=== PATIENT | female | born 1970 | race Caucasian/White ===

== ENCOUNTER → 2017-07-29 | Outpatient (CLI) | payer BC ==
--- NOTE | 2017-07-29 18:07 | DIAGNOSTIC IMAGING REPORT ---
LEFT KNEE 2 VIEWS CLINICAL HISTORY: Fall with left knee pain. FINDINGS: AP and lateral views of left knee are obtained. No prior studies are available for comparison at the time of dictation. The skeletal structures are well mineralized. No fracture is seen. The joint spaces appear maintained. A joint effusion is identified. Mild soft tissue swelling is observed. IMPRESSION: Mild soft tissue swelling and joint effusion. There is no radiographic evidence of left knee fracture. Electronically signed by: Eugenio Lara M.D. 07/29/2017 6:06 PM Dictated Date/Time: 07/29/2017 6:05 PM
== END | disposition home or self-care (01) ==
LOC: C.RAD 17:44
PROVIDERS: ATTEND Nurse Practitioner Family
DX: M25.562 Pain in left knee (principal); W00.0XXA Fall on same level due to ice and snow, initial encounter

== ENCOUNTER → 2017-08-10 | Outpatient (CLI) | payer BC ==
--- NOTE | 2017-08-10 08:58 | DIAGNOSTIC IMAGING REPORT ---
L LOWER EXT JOINT WITHOUT CLINICAL HISTORY: 47 years-old Female presenting with LEFT KNEE INJURY, twisting injury. TECHNIQUE: Multisequence, multiplanar MR imaging of the left knee was performed without the use of intravenous contrast. IV contrast: None. COMPARISON: Plain radiographs from 07/29/2017. FINDINGS: Localizer images: Unremarkable. Bony edema noted in the lateral aspect of the lateral femoral condyle and along the lateral tibial plateau. Minimal linear T2 hypointense, T1 hypointense sagittally oriented defect at the posterior lateral tibial plateau subjacent to the proximal tibiofibular articulation raises concern for an incomplete fracture. This is best seen on coronal imaging. Irregularity and focal defect of the cartilage at the median prominence of the patella (series 6 image 10) minimal articular cartilage defect on the apposing trochlear cartilage. Remainder of articular cartilage intact. Linear fluid signal intensity defect in the posterior horn body junction of the lateral meniscus suspicious for a focal tear. Remainder of the lateral meniscus intact. Medial meniscus intact. Buckled and a Morphis appearance of the anterior cruciate ligament fibers consistent with anterior cruciate ligament tear. Posterior cruciate ligament intact. Quadriceps and patellar tendons intact. Extensive prepatellar and infrapatellar subcutaneous edema and fluid suggesting infrapatellar bursitis. Increased signal intensity of anterior fibers of the distal medial collateral ligament concerning for grade 2/3 sprain. Lateral collateral ligament complex including the biceps femoris tendon, popliteus tendon, fibular collateral ligament, and iliotibial band intact. Normal muscle bulk and muscle signal intensity. Small knee joint effusion. Small popliteal cyst. IMPRESSION: 1. Bony contusion of the lateral femoral condyle and lateral tibial plateau. Questionable incomplete fracture plane at the posterior lateral tibial plateau subjacent to the proximal tibiofibular articulation. 2. Suspected tear of the posterior horn body junction of the lateral meniscus. No convincing evidence of a medial meniscal tear. 3. Anterior cruciate ligament tear. 4. Grade 2/3 sprain of the anterior fibers of the distal medial collateral ligament. 5. Articular cartilage injury of the median prominence of the patella and minimally in the apposing trochlear cartilage. Electronically signed by: Roberth Hartman M.D. 08/10/2017 8:57 AM Dictated Date/Time: 08/10/2017 8:44 AM
== END | disposition home or self-care (01) ==
LOC: C.MRI 07:44
PROVIDERS: ATTEND Internal Medicine
DX: S83.512A Sprain of anterior cruciate ligament of left knee, initial encounter (principal); T14.8XXA Other injury of unspecified body region, initial encounter; S83.412A Sprain of medial collateral ligament of left knee, initial encounter; S89.82XA Other specified injuries of left lower leg, initial encounter; X58.XXXA Exposure to other specified factors, initial encounter

== ENCOUNTER → 2017-08-12 | Outpatient (CLI) | payer BC ==
--- NOTE | 2017-08-12 09:55 | DIAGNOSTIC IMAGING REPORT ---
L KNEE 4 OR MORE CLINICAL HISTORY: 47 years-old Female presenting with LEFT KNEE INJURY. TECHNIQUE: Frontal, sunrise, tunnel, and lateral views of the left knee were obtained. COMPARISON: 07/29/2017. FINDINGS: A vertically oriented thin sclerotic line is evident in the lateral tibial plateau only on tunnel view. This likely correlates to the questionable incomplete fracture plane at the posterior lateral tibial plateau seen on MR. No complete or displaced fracture is evident on radiograph. No malalignment. Mild degenerative change of the patellofemoral compartment. Small knee joint effusion. IMPRESSION: 1. No complete or displaced fracture evident on radiograph. 2. Mild degenerative change of the patellofemoral compartment. Electronically signed by: Roberth Hartman M.D. 08/12/2017 9:54 AM Dictated Date/Time: 08/12/2017 9:50 AM
== END | disposition home or self-care (01) ==
LOC: C.RDSM 15:04
PROVIDERS: ATTEND Internal Medicine
DX: S89.92XA Unspecified injury of left lower leg, initial encounter (principal); X58.XXXA Exposure to other specified factors, initial encounter

== ENCOUNTER → 2017-08-21 | Outpatient (CLI) | payer BC | END | disposition home or self-care (01) | LOC: C.RDSM 08:14 | PROVIDERS: ATTEND Orthopaedic Surgery | DX: S83.512A Sprain of anterior cruciate ligament of left knee, initial encounter (principal); X58.XXXA Exposure to other specified factors, initial encounter ==

== ENCOUNTER → 2017-10-09 | Outpatient (CLI) | payer BC | END | disposition home or self-care (01) | LOC: C.RDSM 14:32 | PROVIDERS: ATTEND Orthopaedic Surgery | DX: T14.8XXA Other injury of unspecified body region, initial encounter (principal); X58.XXXA Exposure to other specified factors, initial encounter; M54.10 Radiculopathy, site unspecified; S82.121D Displaced fracture of lateral condyle of right tibia, subsequent encounter for closed fracture with routine healing; X58.XXXD Exposure to other specified factors, subsequent encounter ==